=== PATIENT | female | born 1975 | race Two or more races ===

== ENCOUNTER 2024-04-30 20:51 | Emergency (ER) | payer OTHER ==
[~2024-04-30] VITALS: Ht 165.1 cm; Wt 72.6 kg
[2024-04-30] MEDS ORDERED: LIDOCAINE HCL 1% 10ML VIAL ONE ×2 (23:23→23:38)
[2024-04-30] MEDS ORDERED: TETANUS & DIPHTHERIA TOX,ADULT 0.5 ML VIAL IM ONE (23:30)
[2024-04-30] MEDS ORDERED: LIDOCAINE HCL 1% 10ML VIAL PERCUT ONE (23:30)
[2024-04-30] MEDS ORDERED: TETANUS DIPHTHERIA TOX. ADSOR 5 ML VIAL IM ONE (23:39)
[2024-05-01] MEDS ORDERED: BACITRACIN-NEOMYCIN-POLYMYXIN 0.9 GM PACKET TOP ONE (00:36)
== END 2024-05-01 01:36 | disposition home or self-care (01) ==
LOC: ER 20:52
DX: S01.01XA Laceration without foreign body of scalp, initial encounter (principal); W10.0XXA Fall (on)(from) escalator, initial encounter; Y93.89 Activity, other specified; Y92.89 Other specified places as the place of occurrence of the external cause